=== PATIENT | male | born 1975 | race Caucasian/White ===

== ENCOUNTER 2016-06-02 14:06 | Emergency (ER) | payer SELFPAY ==
[~2016-06-02 14:06] MED LIST: APAP/HYDROCODON1 T13 PO; BACTRIM DS1 TAB PO; FLEXERIL10 MG PO; HYDROCHLOROTHIA25 MG PO; NICOTINE T14 MG/24 H TOP; PRILOSEC20 MG PO; ZOC20 PO
[2016-06-02 17:06] LABS: microscopic required? NO
[2016-06-02 17:12] LABS: UA SPECIFIC GRAVITY 1.025 (1.005-1.035); urine erythrocyte NEGATIVE (NEGATIVE)
[2016-06-02 18:22] VITALS: BP 131/73
== END 2016-06-02 18:22 | disposition home or self-care (01) ==
LOC: ED 14:06
PROVIDERS: Emergency Medicine
DX: S29.012A Strain of muscle and tendon of back wall of thorax, initial encounter (principal); K42.9 Umbilical hernia without obstruction or gangrene; I10 Essential (primary) hypertension; X58.XXXA Exposure to other specified factors, initial encounter; Y93.89 Activity, other specified; Y99.8 Other external cause status; Y92.89 Other specified places as the place of occurrence of the external cause; Z90.49 Acquired absence of other specified parts of digestive tract
CPT/HCPCS: J1100; J1885

== ENCOUNTER 2016-08-11 12:54 | Emergency (ER) | payer MEDICAID ==
[~2016-08-11] VITALS: Ht 172.7 cm; Wt 119.3 kg
[2016-08-11 14:00] LABS: BASOPHIL % 0.3 % (0-2); PLATELET COUNT 258 x10^3mcL (130-400); RED CELL DISTRIBUTION WIDTH 12.5 % (11.5-14.5)
[2016-08-11 14:19] LABS: CARBON DIOXIDE 28.1 mmol/L (21-32); CHLORIDE SERUM 103 mmol/L (98-107); CREATININE SERUM 1.1 mg/dL (0.7-1.3); GFR1 > 60 mL/min; GLUCOSE SERUM 96 mg/dL (74-106); POTASSIUM SERUM 3.8 mmol/L (3.5-5.1); SODIUM SERUM 141 mmol/L (136-145)
[2016-08-11 14:27] LABS: ALKALINE PHOSPHATASE 36 U/L (46-116); ALT/SGPT 54 U/L (16-63); AST/SGOT 18 U/L (15-37); TOTAL PROTEIN, SERUM 7.3 g/dL (6.4-8.2)
[2016-08-11 15:55] VITALS: BP 134/88
== END 2016-08-11 15:55 | disposition home or self-care (01) ==
LOC: ED 12:54
PROVIDERS: Emergency Medicine
DX: K02.9 Dental caries, unspecified (principal); G31.89 Other specified degenerative diseases of nervous system
CPT/HCPCS: J1885; J7030; Q9967

== ENCOUNTER 2017-04-09 09:35 | Emergency (ER) | payer OTHER ==
[~2017-04-09] VITALS: Ht 172.7 cm; Wt 132.0 kg
[2017-04-09 09:37] VITALS: BP 171/100; Ht 172.7 cm; Wt 132.0 kg
== END 2017-04-09 10:38 | disposition home or self-care (01) ==
LOC: ED 09:35
DX: R51 Headache (principal); K02.9 Dental caries, unspecified; I10 Essential (primary) hypertension; E78.00 Pure hypercholesterolemia, unspecified; E66.01 Morbid (severe) obesity due to excess calories; F17.210 Nicotine dependence, cigarettes, uncomplicated

== ENCOUNTER 2017-11-08 11:11 | Emergency (ER) | payer OTHER ==
[~2017-11-08] VITALS: Ht 172.7 cm; Wt 132.0 kg
[2017-11-08 11:20] VITALS: Ht 172.7 cm; Wt 132.0 kg
[2017-11-08 11:57] VITALS: BP 155/98
== END 2017-11-08 11:57 | disposition home or self-care (01) ==
LOC: ED 11:11
DX: J03.90 Acute tonsillitis, unspecified (principal); I10 Essential (primary) hypertension; E78.00 Pure hypercholesterolemia, unspecified; Z90.49 Acquired absence of other specified parts of digestive tract; F17.210 Nicotine dependence, cigarettes, uncomplicated
CPT/HCPCS: 99406

== ENCOUNTER 2018-01-30 09:19 | Inpatient (IN) | payer OTHER ==
[~2018-01-30] VITALS: Ht 172.7 cm; Wt 131.5 kg
[2018-01-30 10:04] LABS: BASOPHIL % 0.4 % (0-2); PLATELET COUNT 270 x10^3mcL (130-400); RED CELL DISTRIBUTION WIDTH 13.2 % (11.5-14.5)
[2018-01-30 10:15] LABS: CALCIUM 9.3 mg/dL (8.5-10.1); CARBON DIOXIDE 28.6 mmol/L (21-32); CHLORIDE SERUM 105 mmol/L (98-107); CREATININE SERUM 1.1 mg/dL (0.7-1.3); GFR1 > 60 mL/min; GLUCOSE SERUM 125 mg/dL (74-106); POTASSIUM SERUM 3.8 mmol/L (3.5-5.1); SODIUM SERUM 143 mmol/L (136-145)
[2018-01-30 10:25] LABS: ALKALINE PHOSPHATASE 48 U/L (46-116); ALT/SGPT 46 U/L (16-63); AMYLASE 33 U/L (25-115); AST/SGOT 20 U/L (15-37); CHOLESTEROL 237 mg/dL (<200); HDL CHOLESTEROL 38 mg/dL (40-60); LIPASE 171 IU/L (73-393); MAGNESIUM 2.1 mg/dL (1.8-2.4); T4(THYROXINE) 5.8 ug/dL (4.7-13.3); TOTAL PROTEIN, SERUM 7.5 g/dL (6.4-8.2)
[2018-01-30 10:52] LABS: microscopic required? NO
[2018-01-30 11:00] LABS: urine erythrocyte NEGATIVE (NEGATIVE)
[2018-01-30 11:12] LABS: AMPHETAMINE QUAL UR NONE DETECTED (See below)
[2018-01-30 13:39] LABS: PHOSPHOROUS 2.9 mg/dL (2.5-4.9)
[2018-01-30 13:40] LABS: CHOLESTEROL/HDL RATIO 6.2
[2018-01-30 14:00] LABS: T3 TOTAL 1.21 ng/mL
[2018-01-30 14:07] LABS: FREE T4 0.81 ng/dL (0.76-1.46); FREE THYROXINE INDEX 2.2 ug/dL (1.4-4.5); T4(THYROXINE) 6.8 ug/dL (4.7-13.3)
[2018-01-30 16:15] VITALS: BP 114/73
[2018-01-30 16:32] VITALS: BP 139/77
[2018-01-30 20:44] VITALS: BP 120/63
[2018-01-31 05:04] VITALS: BP 100/57
[2018-01-31 09:09] VITALS: BP 116/61
[2018-01-31 12:45] VITALS: BP 112/73
[2018-01-31] MEDS ORDERED: ATORVASTATIN CA40 M1 PO (13:20)
[2018-01-31] MEDS ORDERED: METOPROLOL TART25 M1 PO (13:20)
[2018-01-31] MEDS ORDERED: ZES10 PO (13:21)
[2018-01-31] MEDS ORDERED: ECO81 PO (13:22)
[2018-01-31 13:41] VITALS: BP 112/73
== END 2018-01-31 14:39 | disposition home or self-care (01) | DRG 48 ==
LOC: ED 09:19 → DU 12:42
PROVIDERS: Emergency Medicine; Family Medicine
DX: G90.8 Other disorders of autonomic nervous system (principal); E11.65 Type 2 diabetes mellitus with hyperglycemia; E66.01 Morbid (severe) obesity due to excess calories; Z68.41 Body mass index [BMI] 40.0-44.9, adult; R07.89 Other chest pain; I10 Essential (primary) hypertension; E78.5 Hyperlipidemia, unspecified; K42.9 Umbilical hernia without obstruction or gangrene; F15.11 Other stimulant abuse, in remission; Z87.891 Personal history of nicotine dependence; Z91.128 Patient's intentional underdosing of medication regimen for other reason
CPT/HCPCS: 82962; 83880; 84439; 99406; G0480; J1885; J1940; Q0092

== ENCOUNTER 2019-01-09 01:09 | Inpatient (IN) | payer OTHER ==
[~2019-01-09] VITALS: Ht 172.7 cm; Wt 135.2 kg
[~2019-01-09 01:09] MED LIST changes: +ATORVASTATIN CA40 M1 PO; +ECO81 PO; +METOPROLOL TART25 M1 PO; +ZES10 PO
[2019-01-09 01:12] VITALS: Ht 172.7 cm; Wt 135.2 kg
[2019-01-09 02:01] LABS: BASOPHIL % 0.4 % (0-2); PLATELET COUNT 307 x10^3mcL (130-400); RED CELL DISTRIBUTION WIDTH 12.3 % (11.5-14.5)
[2019-01-09 02:44] LABS: CALCIUM 8.3 mg/dL (8.5-10.1); CARBON DIOXIDE 25.5 mmol/L (21-32); CHLORIDE SERUM 111 mmol/L (98-107); CREATININE SERUM 1.2 mg/dL (0.7-1.3); GFR1 > 60 mL/min; GLUCOSE SERUM 162 mg/dL (74-106); SODIUM SERUM 146 mmol/L (136-145)
[2019-01-09 02:49] LABS: ALBUMIN 3.8 g/dL (3.4-5.0); ALKALINE PHOSPHATASE 52 U/L (46-116); ALT/SGPT 68 U/L (16-63); AST/SGOT 26 U/L (15-37); BILIRUBIN TOTAL 0.17 mg/dL (0.20-1.00); CHOLESTEROL 199 mg/dL (<200); CHOLESTEROL/HDL RATIO 5.5; HDL CHOLESTEROL 36 mg/dL (40-60); LIPASE 197 IU/L (73-393); TOTAL PROTEIN, SERUM 7.1 g/dL (6.4-8.2); TRIGLYCERIDES 186 mg/dL (<150)
[2019-01-09 04:08] VITALS: BP 109/57
[2019-01-09 04:42] VITALS: BP 195/96
[2019-01-09 07:58] VITALS: BP 108/60
[2019-01-09 11:26] LABS: microscopic required? NO
[2019-01-09 11:51] LABS: AMPHETAMINE QUAL UR NONE DETECTED (See below)
[2019-01-09 12:00] VITALS: BP 106/62
[2019-01-09 12:01] LABS: UA SPECIFIC GRAVITY 1.025 (1.005-1.035); urine erythrocyte NEGATIVE (NEGATIVE)
[2019-01-09 16:45] VITALS: BP 124/71
[2019-01-09 19:40] VITALS: BP 122/66
[2019-01-10 04:50] VITALS: BP 115/65
[2019-01-10 07:02] LABS: CALCIUM 8.5 mg/dL (8.5-10.1); CARBON DIOXIDE 30.9 mmol/L (21-32); CHLORIDE SERUM 107 mmol/L (98-107); GFR1 > 60 mL/min; GLUCOSE SERUM 132 mg/dL (74-106); MAGNESIUM 2.2 mg/dL (1.8-2.4); PHOSPHOROUS 3.6 mg/dL (2.5-4.9); POTASSIUM SERUM 4.1 mmol/L (3.5-5.1); SODIUM SERUM 143 mmol/L (136-145)
[2019-01-10 07:58] VITALS: BP 120/84
[2019-01-10 08:19] LABS: PLATELET COUNT 276 x10^3mcL (130-400); RED CELL DISTRIBUTION WIDTH 12.3 % (11.5-14.5)
[2019-01-10 08:20] LABS: BASOPHIL % 0.5 % (0-2)
[2019-01-10 12:06] VITALS: BP 137/83
[2019-01-10 16:21] VITALS: BP 133/70
[2019-01-10 20:40] VITALS: BP 115/64
[2019-01-11 04:56] VITALS: BP 110/72
[2019-01-11 07:09] LABS: BASOPHIL % 0.4 % (0-2); PLATELET COUNT 262 x10^3mcL (130-400); RED CELL DISTRIBUTION WIDTH 12.8 % (11.5-14.5)
[2019-01-11 07:49] VITALS: BP 130/80
[2019-01-11 07:54] LABS: CALCIUM 8.6 mg/dL (8.5-10.1); CARBON DIOXIDE 26.7 mmol/L (21-32); CHLORIDE SERUM 107 mmol/L (98-107); CREATININE SERUM 0.8 mg/dL (0.7-1.3); GFR1 > 60 mL/min; GLUCOSE SERUM 126 mg/dL (74-106); POTASSIUM SERUM 4.1 mmol/L (3.5-5.1); SODIUM SERUM 142 mmol/L (136-145)
[2019-01-11] MEDS ORDERED: ZITHROMAX TRI-500 MG PO (11:55)
[2019-01-11] MEDS ORDERED: PROAIR HFA8.5 GM IH (11:56)
[2019-01-11 12:25] VITALS: BP 110/72
== END 2019-01-11 13:27 | disposition home or self-care (01) | DRG 139 ==
LOC: ED 01:09 → DU 03:23 → MU 01-10 15:04
PROVIDERS: Emergency Medicine; ADMIT Internal Medicine
DX: J18.9 Pneumonia, unspecified organism (principal); G92 Toxic encephalopathy; E66.01 Morbid (severe) obesity due to excess calories; M62.82 Rhabdomyolysis; Z68.41 Body mass index [BMI] 40.0-44.9, adult; T51.0X1A Toxic effect of ethanol, accidental (unintentional), initial encounter; F10.129 Alcohol abuse with intoxication, unspecified; R73.03 Prediabetes; I10 Essential (primary) hypertension; E78.5 Hyperlipidemia, unspecified; Z79.82 Long term (current) use of aspirin; Y90.7 Blood alcohol level of 200-239 mg/100 ml; Y92.009 Unspecified place in unspecified non-institutional (private) residence as the place of occurrence of the external cause
CPT/HCPCS: 82962; 85378; G0378; G0480; J0456; J0696; J7030; Q0092